=== PATIENT | female | born 2000 | race Caucasian/White ===

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

== ENCOUNTER 2023-03-02 18:31 | Outpatient (REF) | payer BC, SELFPAY ==
--- NOTE | 2023-03-03 08:00 | PAPFT_PTH ---
PATIENT: Maris Butts LOC: [facility] U#:[id number] AGE/SX: 22/F ROOM: RE03/02/[address]: Eulalia Matt APRN : 2000 BED: DIS: 03/02/2023 SPEC #: [id number] RECD: 03/03/23 14:28 STATUS: ROBE REMax #: [id number] PEPE: 03/03/23 08:[address]: Eulalia Matt DEPT: [facility] Cytology RECD BY: Lilian Freeman Tissues: 1 - CX/ENDOCX FOR PAP SMEARS Procedures: PAP THIN PREP/[facility] Screening Comments: [id number]
== END 2023-03-02 18:32 | disposition home or self-care (01) ==
LOC: LBO 18:31
PROVIDERS: PCP Nurse Practitioner Adult Health; Visit Provider Nurse Practitioner Adult Health
DX: Z12.4 Encounter for screening for malignant neoplasm of cervix (principal); Z11.51 Encounter for screening for human papillomavirus (HPV)
CPT/HCPCS: 88142

== ENCOUNTER 2023-05-10 03:11 | Outpatient (CLI) | payer BC, SELFPAY ==
[2023-05-10 08:54] LABS: ALT 20 U/L (14-59); AST 17 U/L (15-37); Albumin 4.1 g/dL (3.4-5.0); Alkaline Phosphatase 69 U/L (46-116); Anion Gap 9.7 mmol/L (3-11); BUN 12 mg/dL (7-18); Bilirubin, Total 0.8 mg/dL (0.2-1.0); CO2 24.3 mmol/L (21.0-32.0); CREATININE 0.7 mg/dL (0.55-1.02); Calcium 9.6 mg/dL (8.5-10.1); Chloride 105 mmol/L (98-107); Estimated GFR 125.33 (mL/min/1.73m2); Glucose 86 mg/dL (74-106); Lipase 19 U/L (16-77); Potassium 4.3 mmol/L (3.5-5.1); Sodium 139 mmol/L (136-145); Total Protein 7.3 g/dL (6.4-8.2)
[2023-05-11 22:51] LABS: Avocado, IgE <0.10 kU/L (<0.70); Green Pepper IgE <0.10 kU/L (<0.70)
[2023-05-11 23:00] LABS: Cucumber IgE 0.29 kU/L (<0.70)
== END 2023-05-10 03:12 | disposition home or self-care (01) ==
LOC: LBO 03:12
PROVIDERS: Absent Provider Nurse Practitioner Adult Health; PCP Nurse Practitioner Adult Health; Visit Provider Nurse Practitioner Adult Health
DX: K90.49 Malabsorption due to intolerance, not elsewhere classified (principal); R10.9 Unspecified abdominal pain
CPT/HCPCS: 36415; 80053; 83690; 86003